=== PATIENT | female | born 1980 | race Two or more races ===

== ENCOUNTER 2020-01-20 02:51 | Emergency (ER) | payer OTHER ==
[~2020-01-20] VITALS: Ht 172.7 cm; Wt 54.6 kg
--- NOTE | 2020-01-20 03:21 | NUR ---
PT TO ROOM FROM [employer] AT BEDSIDE, PT STATES SHE IS RUNNING FROM [employer] IN [place], HAS SPENT TIME IN [facility] LATELY, STATES SI AND WANTED TO RUN INTO TRAFFIC.
[2020-01-20] MEDS ORDERED: ONDANSETRON ODT 4 MG PO ONE (03:30)
[2020-01-20] MEDS ORDERED: ONDANSETRON ODT 4 MG ONE (03:33)
[2020-01-20 03:55] LABS: ALANINE AMINOTRANSFERASE 19 U/L (12-78); ALBUMIN 3.6 g/dL (3.4-5.0); ANION GAP 5 mmol/L (5-15); CALCIUM 8.9 mg/dL (8.5-10.1); CHLORIDE 109 mmol/L (98-107); CREATININE 0.63 mg/dL (0.55-1.02)
[2020-01-20 03:57] LABS: BASOPHILS % (AUTO) 0 % (0-1); EOSINOPHILS % (AUTO) 2 % (1-7); LYMPHOCYTES % (AUTO) 29 % (22-44); MEAN CORPUSCULAR HEMOGLOBIN 30.3 pg (27.0-34.8); MEAN CORPUSCULAR HGB CONC 33.5 g/dL (32.4-35.8); MEAN PLATELET VOLUME 7.8 fL (7.4-10.4); MONOCYTES % (AUTO) 7 % (2-9); NEUTROPHILS % (AUTO) 62 % (42-75); PLATELET COUNT 340 x10^3/uL (130-400); RED BLOOD COUNT 3.91 x10^6/uL (3.82-5.3); RED CELL DISTRIBUTION WIDTH 13.7 % (9.6-15.2)
[2020-01-20 03:58] LABS: MD NO
[2020-01-20 03:59] LABS: ALKALINE PHOSPHATASE 55 U/L (45-117); BILIRUBIN,TOTAL 0.2 mg/dL (0.2-1.0); TOTAL PROTEIN 7.2 g/dL (6.4-8.2)
[2020-01-20 04:03] LABS: AMPHETAMINE SCREEN, URINE Negative (Negative); BARBITURATE SCREEN, URINE Negative (Negative); BENZODIAZEPINE SCREEN, URINE Negative (Negative); CANNABINOID SCREEN, URINE Positive (Negative); COCAINE SCREEN, URINE Negative (Negative); METHADONE SCREEN, URINE Negative (Negative); OPIATE SCREEN, URINE Negative (Negative)
[2020-01-20 04:07] LABS: SALICYLATE LEVEL < 1.7 mg/dL (2.8-20.0)
--- NOTE | 2020-01-20 04:42 | NUR ---
belongings removed from pt and placed in locker, room secure and sitter outside room,
--- NOTE | 2020-01-20 04:43 | NUR ---
report to heidi at this time
--- NOTE | 2020-01-20 06:03 | NUR ---
Pt states she wants to speak to patient advocates and [employer]. Provided pt with phone number for pt advocates and allowed pt to use phone, safety watch remains within immediate vicinity. Pt also reports sudden onset chest pain. Provider aware. EKG performed, NSR noted on EKG. Instructed pt to alert staff to changing/worsening pain or additional sx
--- NOTE | 2020-01-20 06:20 | NUR ---
Pt asking this RN questions r/t psych hold. Reminded pt that tele psych would occur soon and psych team would make decisions r/t POC. Pt asks this RN, "are you [place]?" Responded that I am [place]. Pt states, "I could tell because of your complete lack of knowledge regarding the policies and procedures of this hospital." This RN assured pt that she would confirm the correct policy with nutrition educator.
--- NOTE | 2020-01-20 06:46 | NUR ---
Pt resting comfortably on stretcher. Bed low, side rails up, call light within reach. No s/sx acute distress. Visible chest rise/fall noted. Sitter remains within immediate vicinity of pt
--- NOTE | 2020-01-20 07:08 | NUR ---
Took report from Debora Lerma RN, assume care at this time.
--- NOTE | 2020-01-20 08:00 | NUR ---
DIET TRAY ORDERED, PT CALM IN BED ASKING WHEN SHE IS GOING TO BE SEEN BY A PSYCHIATRIST. PSY CALLED FOR UPDATE, PT WILL BE SEEN SOON. ROOM IS SAFE AND SECURE. SHARON SITTER OUTSIDE.
--- NOTE | 2020-01-20 09:24 | NUR ---
TELEPSYCH IN ROOM
--- NOTE | 2020-01-20 10:46 | NUR ---
PT ON HOLD PER TELE PSY
--- NOTE | 2020-01-20 10:57 | NUR ---
Pt requesting patient advocate number, karla Pillai called reports that she wilol come down and talk to the pt
--- NOTE | 2020-01-20 13:51 | NUR ---
PSY/LIS HAVE BEEN IN THE ROOM . DIET ORDER PUT IN
--- NOTE | 2020-01-20 14:25 | NUR ---
patient moved to room 2. good on feet. ordered her food. got her on clean sheets on hospital bed. she is calm and cooperative.
--- NOTE | 2020-01-20 14:34 | NUR ---
got patient snack/crackers/juice
--- NOTE | 2020-01-20 16:10 | NUR ---
patient sleeping at this time. will medicate patient when she wakes up
--- NOTE | 2020-01-20 16:31 | NUR ---
patient resting quietly
--- NOTE | 2020-01-20 16:47 | NUR ---
BREAK RN: PT RESTING ON HOSPITAL BED W/ SITTER OUTSIDE ROOM AND GARAGE DOORS DOWN FOR SAFETY. RESP EVEN AND UNLABORED, ELLEN.
--- NOTE | 2020-01-20 16:59 | NUR ---
BREAK RN: FAIZAN PUGA FROM PHARMACY.
[2020-01-20] MEDS: BUSPIRONE 5 MG TABLET PO SCH ×2 (17:16→22:20)
--- NOTE | 2020-01-20 17:16 | NUR ---
BREAK RN: PT MEDICATED PER EMAR. COMPLIENT W/ MEDS. NADN. DENIES FURTHER NEEDS AT THIS TIME. SITTER OUTSIDE ROOM AND GARAGE DOORS DOWN FOR SAFETY.
--- NOTE | 2020-01-20 17:58 | NUR ---
patient calm, denies pain
--- NOTE | 2020-01-20 18:57 | NUR ---
REPORT TO MARIUM BARBOSA
--- NOTE | 2020-01-20 19:00 | NUR ---
Report received and care assumed. Pt resting on hospital bed. Meal tray provided--pt states she does not want to eat it right now, to leave it there. Pt requesting to speak with RN privately. Pt states "I don't want to commit to this care home. I'm not going for years." Pt reassured that she will be transferred to a facility where her needs will be assessed and she can create a game plan with her care team there. Pt states she doesn't want to commit to transferring. Discussed with pt that she will have to stay with us tonight and we can reassess with psych eval in the am if necessary. Pt agrees to this plan. Sitter at bedside and room secured. No further needs expressed.
--- NOTE | 2020-01-20 20:15 | NUR ---
TP: FAXED PACKET TO [facility]
[2020-01-20] MEDS ORDERED: LORazepam 1MG TABLET ONE ×2 (21:56→21:58)
[2020-01-20] MEDS ORDERED: LORazepam 1MG TABLET PO ONE (22:00)
--- NOTE | 2020-01-20 22:20 | NUR ---
Pt medicated per JUN. Clarified timing of Buspar with Zeke from pharmacy. Ok to give now. Pt given toothbrush and paste. Denies further needs. Pt away of POC. Pt agrees to sleep tonight and can discuss further POC in AM possible with psych P[employer] AND RECON[employer]CTIVE SURGEON. Sitter in place and room secured.
--- NOTE | 2020-01-20 23:15 | NUR ---
Pt resting with eyes closed. Resp even and unlabored. Sitter in place for obs. Room secured.
--- NOTE | 2020-01-21 00:15 | NUR ---
Pt sleeping with resp even and unlabored. Sitter in place. Room secured.
--- NOTE | 2020-01-21 00:50 | NUR ---
Report to Radha BARBOSA.
--- NOTE | 2020-01-21 01:03 | NUR ---
1st contact c pt. resting in bed. rr even non labored. sitter remains in view of room.
--- NOTE | 2020-01-21 06:55 | NUR ---
RECEIVED REPORT FROM CHELSEY GARRIDO
--- NOTE | 2020-01-21 07:15 | NUR ---
PT RESTING WITH EYES CLOSED. EVEN FALL AND RISE OF CHEST NOTED. SITTER OUTSIDE ROOM, WITH A DIRECT LINE OF SIGHT OF PT.
[2020-01-21] MEDS ORDERED: SERTRALINE 50MG TABLET PO SCH (09:00)
--- NOTE | 2020-01-21 09:27 | NUR ---
PT AWAKE, SITTING UP IN BED, WATCHING TV. PT STATED SHE WAS HUNGRY AND WAS GIVEN HER BREAKFAST TRAY.
[2020-01-21] MEDS ORDERED: SERTRALINE 50MG TABLET ONE (09:35)
[2020-01-21 09:56] VITALS: BP 110/72
--- NOTE | 2020-01-21 09:59 | NUR ---
SPOKE WITH VALENTIN AT [facility] WHO STATES THEY WILL ACCEPT THE PT.
[2020-01-21] MEDS: BUSPIRONE 5 MG TABLET PO SCH (10:40)
--- NOTE | 2020-01-21 10:53 | NUR ---
FINAL PHONE REPORT GIVEN TO VALENTIN AT [facility]. PT IN THE CARE OF [facility]. PT AMBULATED TO ER DOOR, STEADY GAIT.
== END 2020-01-21 10:57 ==
LOC: ED 04:02
DX: F23 Brief psychotic disorder (principal); R45.851 Suicidal ideations; R11.2 Nausea with vomiting, unspecified; F41.1 Generalized anxiety disorder; R94.31 Abnormal electrocardiogram [ECG] [EKG]; Z72.9 Problem related to lifestyle, unspecified; F17.210 Nicotine dependence, cigarettes, uncomplicated
CPT/HCPCS: 36415; 80053; 80307; 84703; 85025; 93005; 99285; Q0162